=== PATIENT | female | born 1990 | race African-American/Black ===

== ENCOUNTER 2020-08-28 01:41 | Inpatient (IN) ==
[2020-08-28 02:40] LABS: Bacteria,Urine Occasional /HPF (Few); Bilirubin,Urine Negative (Negative); Blood, Urine Negative (Negative); Glucose,Urine (UA) Negative (Negative); Ketones,Urine Negative (Negative); Mucus,Urine Occasional /LPF (Occasional); Nitrite,Urine Negative (Negative); Protein,Urine Negative; Squamous Epithelial Cell,Urine Occasional /HPF (0-10); Urine Appearance CLEAR (Clear); Urine Color Yellow (Yellow); Urine Specific Gravity 1.013 (1.001-1.035)
[2020-08-28] MEDS: LACTATED RINGERS 1,000 ML IV SCH ×2 (03:13→04:24)
[2020-08-28 06:55] LABS: Basophils % 0.1 % (0.0-0.8); Eosinophils # 0.1 10*3/uL (0.0-0.87); Eosinophils % 0.8 % (0.00-10.9); Hematocrit 36.3 VOL% (35.7-47.0); Immature Granulocytes % 0.5 %; Immature Granulocytes Absolute 0.08 #; Lymphocytes # 1.9 10*3/uL (1.4-4.0); Lymphocytes % 11.8 % (21.3-54.2); Mean Corpuscular HGB Conc 33.1 GM/DL (32-36); Mean Corpuscular Volume 82.5 FL (87-102); Mean Platelet Volume 10.2 FL (9.6-12.0); Monocytes % 5.3 % (1.7-12.7); Neutrophils % 81.5 % (38.7-73.9); Platelet Count 214 T/CUMM (130-400); Red Cell Distribution Width 14.2 % (9.3-17.3); White Blood Count 15.9 T/CUMM (4-12)
[2020-08-28] MEDS ORDERED: OXYTOCIN/LR 30 UNIT/1,000 ML BAG IV ONE (07:23)
[2020-08-28] MEDS ORDERED: OXYTOCIN 10 UNIT/ML VIAL IM ONE (07:23)
[2020-08-28 07:33] LABS: Albumin 2.5 G/DL (3.4-5.0); Bilirubin,Total 0.4 MG/DL (0.20-1.00); Calcium 8.4 MG/DL (8.5-10.1); Osmolality,Calculated 271.7 MOS/KG (273-304); Potassium 3.7 MMOL/L (3.5-5.1); Total Protein 6.5 G/DL (6.4-8.2)
[2020-08-28] MEDS ORDERED: ceFAZolin 2,000 MG/50 ML DUPLEX IV ONE (07:34)
[2020-08-28] MEDS ORDERED: CITRIC ACID/SODIUM CITRATE 30 ML UDCUP PO ONE (07:34)
[2020-08-28] MEDS ORDERED: FAMOTIDINE 20 MG/2 ML VIAL IV ONE ×2 (07:34→07:37)
[2020-08-28] MEDS ORDERED: CITRIC ACID/SODIUM CITRATE 30 ML UDCUP ONE (07:37)
[2020-08-28] MEDS ORDERED: OXYTOCIN 10 UNIT/ML VIAL ONE (07:37)
[2020-08-28] MEDS ORDERED: BUPIVACAINE SPINAL 0.75% 2 ML AMP SPINAL ONE (07:47)
[2020-08-28] MEDS ORDERED: LACTATED RINGERS 1,000 ML IV SCH ×2 (08:00→09:30)
[2020-08-28] MEDS ORDERED: DEXAMETHASONE 4 MG/1 ML VIAL ONE (08:30)
[2020-08-28] MEDS ORDERED: ONDANSETRON 4 MG/2 ML VIAL ONE (08:30)
[2020-08-28] MEDS ORDERED: PHENYLEPHRINE 1 MG/10 ML SYRINGE IV ONE (08:31)
[2020-08-28 09:02] LABS: Cord Arterial Blood HCO3 19.9 MMOL/L
[2020-08-28 09:03] LABS: Bacteria,Urine Occasional /HPF (Few); Bilirubin,Urine Negative (Negative); Blood, Urine Negative (Negative); Glucose,Urine (UA) Negative (Negative); Ketones,Urine Negative (Negative); Mucus,Urine Few /LPF (Occasional); Nitrite,Urine Negative (Negative); Protein,Urine Negative; RBC,Urine 6 /HPF (0-4); Squamous Epithelial Cell,Urine Occasional /HPF (0-10); Urine Appearance CLEAR (Clear); Urine Color Yellow (Yellow); Urine Specific Gravity 1.023 (1.001-1.035)
[2020-08-28 09:04] LABS: Cord Venous Blood PCO2 43.4 MMHG; Cord Venous Blood PO2 31.2 MMHG
[2020-08-28] MEDS ORDERED: SIMETHICONE CHEW 80 MG TABLET PO PRN (09:24)
[2020-08-28] MEDS ORDERED: ONDANSETRON 4 MG/2 ML VIAL IV PRN (09:24)
[2020-08-28] MEDS ORDERED: OXYTOCIN/LR 20 UNIT/1,000 ML BAG IV ONE (09:24)
[2020-08-28] MEDS ORDERED: ACETAMINOPHEN 325 MG TABLET PO PRN (09:24)
[2020-08-28] MEDS ORDERED: RHO(D) IMMUNE GLOBULIN 300 MCG SYRINGE IM ONE (09:24)
[2020-08-28] MEDS: ACETAMINOPHEN 500 MG TABLET PO SCH ×3 (12:20→23:37)
[2020-08-28 16:59] LABS: Basophils % 0.1 % (0.0-0.8); Hematocrit 36.7 VOL% (35.7-47.0); Hemoglobin 12.1 GM/DL (12.0-16.0); Immature Granulocytes % 0.6 %; Immature Granulocytes Absolute 0.11 #; Lymphocytes # 0.8 10*3/uL (1.4-4.0); Lymphocytes % 4.1 % (21.3-54.2); Mean Corpuscular Volume 82.1 FL (87-102); Mean Platelet Volume 10.5 FL (9.6-12.0); Monocytes % 3.2 % (1.7-12.7); Platelet Count 217 T/CUMM (130-400); Red Blood Count 4.47 MC/CUMM (3.8-5.5); Red Cell Distribution Width 14.1 % (9.3-17.3); White Blood Count 19.9 T/CUMM (4-12)
[2020-08-28 17:54] LABS: Hypochromasia 2+; Lymphocytes 1 % (20-55); Microcytosis 1+; Platelet Estimate Increased; Polychromasia Slight; Segmented Neutrophils 97 % (50-85); Total Cells Counted 100
[2020-08-28] MEDS: DOCUSATE SODIUM 100 MG CAPSULE PO SCH (20:25)
[2020-08-29] MEDS: ACETAMINOPHEN 500 MG TABLET PO SCH (05:33)
[2020-08-29 06:17] LABS: Basophils % 0.2 % (0.0-0.8); Eosinophils # 0.1 10*3/uL (0.0-0.87); Eosinophils % 0.3 % (0.00-10.9); Hematocrit 35.6 VOL% (35.7-47.0); Hemoglobin 11.5 GM/DL (12.0-16.0); Immature Granulocytes % 0.5 %; Immature Granulocytes Absolute 0.09 #; Lymphocytes # 2.8 10*3/uL (1.4-4.0); Lymphocytes % 15.6 % (21.3-54.2); Mean Corpuscular HGB Conc 32.3 GM/DL (32-36); Mean Corpuscular Volume 83.4 FL (87-102); Mean Platelet Volume 10.7 FL (9.6-12.0); Monocytes % 6.5 % (1.7-12.7); Neutrophils % 76.9 % (38.7-73.9); Platelet Count 224 T/CUMM (130-400); Red Blood Count 4.27 MC/CUMM (3.8-5.5); Red Cell Distribution Width 14.2 % (9.3-17.3)
[2020-08-29] MEDS: MAGNESIUM HYDROXIDE SUSP 30 ML UDCUP PO PRN ×2 (09:24→20:55)
[2020-08-29] MEDS: DOCUSATE SODIUM 100 MG CAPSULE PO SCH ×2 (09:24→20:55)
[2020-08-29] MEDS: MULTIVITAMIN (PRENATAL) TABLET PO SCH (09:24)
[2020-08-29] MEDS: METOCLOPRAMIDE 10 MG TABLET PO SCH ×2 (09:24→15:47)
[2020-08-29] MEDS: IBUPROFEN 800 MG TABLET PO PRN ×2 (12:34→20:55)
[2020-08-30] MEDS: METOCLOPRAMIDE 10 MG TABLET PO SCH ×2 (00:45→08:33)
[2020-08-30] MEDS: IBUPROFEN 800 MG TABLET PO PRN (08:33)
[2020-08-30] MEDS: MULTIVITAMIN (PRENATAL) TABLET PO SCH (08:33)
[2020-08-30] MEDS: DOCUSATE SODIUM 100 MG CAPSULE PO SCH (08:33)
[2020-08-30 11:43] VITALS: BP 118/68
== END 2020-08-30 13:35 | disposition home or self-care (01) | DRG 540 ==
LOC: N.LDOUT 01:41 → N.LD 01:43 → N.OB 12:26
PROVIDERS: ADMIT Obstetrics & Gynecology; ATTEND Obstetrics & Gynecology
PROC: LDCSECT (ICD-10-PCS; 2020-08-28 07:30)

== ENCOUNTER 2022-03-03 05:42 | Inpatient (IN) ==
[2022-03-03] MEDS ORDERED: OXYTOCIN/LR 20 UNIT/1,000 ML BAG IV ONE ×2 (05:48→10:20)
[2022-03-03] MEDS ORDERED: METHYLERGONOVINE 0.2 MG/1 ML AMP IM PRN (05:48)
[2022-03-03] MEDS ORDERED: TRANEXAMIC ACID 1,000 MG in SODIUM CHLORIDE 0.9% 100 ML IV PRN (05:48)
[2022-03-03] MEDS ORDERED: miSOPROStoL 200 MCG TABLET RECTAL PRN (05:48)
[2022-03-03] MEDS ORDERED: CITRIC ACID/SODIUM CITRATE 30 ML UDCUP PO ONE (05:48)
[2022-03-03] MEDS ORDERED: ceFAZolin 2,000 MG/50 ML DUPLEX IV ONE (05:48)
[2022-03-03] MEDS ORDERED: CARBOPROST TROMETHAMINE 250 MCG/ML AMP IM PRN (05:48)
[2022-03-03] MEDS ORDERED: FAMOTIDINE 20 MG/2 ML VIAL IV ONE (05:48)
[2022-03-03] MEDS ORDERED: OXYTOCIN/LR 30 UNIT/1,000 ML BAG IV ONE (05:50)
[2022-03-03] MEDS ORDERED: OXYTOCIN 10 UNIT/ML VIAL IM ONE (05:50)
[2022-03-03] MEDS ORDERED: LACTATED RINGERS 1,000 ML IV SCH (06:00)
[2022-03-03 06:14] LABS: Basophils % 0.3 % (0.0-0.8); Eosinophils # 0.1 10*3/uL (0.0-0.87); Eosinophils % 0.9 % (0.00-10.9); Hematocrit 33.7 VOL% (35.7-47.0); Hemoglobin 11.2 GM/DL (12.0-16.0); Immature Granulocytes % 0.5 %; Immature Granulocytes Absolute 0.05 #; Lymphocytes # 2.3 10*3/uL (1.4-4.0); Lymphocytes % 23.9 % (21.3-54.2); Mean Corpuscular HGB Conc 33.2 GM/DL (32-36); Mean Corpuscular Volume 80.2 FL (87-102); Mean Platelet Volume 9.5 FL (9.6-12.0); Monocytes # 0.7 10*3/uL (0.11-0.8); Monocytes % 6.8 % (1.7-12.7); Neutrophils % 67.6 % (38.7-73.9); Platelet Count 241 T/CUMM (130-400); Red Cell Distribution Width 14.1 % (9.3-17.3); White Blood Count 9.8 T/CUMM (4-12)
[2022-03-03 06:42] LABS: Albumin 2.8 G/DL (3.4-5.0); Bilirubin,Total 0.5 MG/DL (0.20-1.00); Calcium 8.8 MG/DL (8.5-10.1); Osmolality,Calculated 268.1 MOS/KG (273-304); Potassium 3.9 MMOL/L (3.5-5.1); Total Protein 7.2 G/DL (6.4-8.2)
[2022-03-03] MEDS ORDERED: buprenorphine HCL 0.3 MG/ML VIAL ONE (06:46)
[2022-03-03] MEDS ORDERED: PHENYLEPHRINE 1 MG/10 ML SYRINGE IV ONE ×3 (06:50→10:06)
[2022-03-03] MEDS ORDERED: ONDANSETRON 4 MG/2 ML VIAL ONE (06:50)
[2022-03-03] MEDS ORDERED: KETOROLAC 30 MG/1 ML VIAL ONE (06:51)
[2022-03-03 10:04] LABS: Cord Arterial Blood HCO3 20.4 MMOL/L
[2022-03-03 10:07] LABS: Cord Venous Blood HCO3 21.8 MMOL/L; Cord Venous Blood PCO2 50.7 MMHG; Cord Venous Blood PO2 30.1
[2022-03-03] MEDS ORDERED: LACTATED RINGERS 1,000 ML IV ONE (10:07)
[2022-03-03] MEDS ORDERED: ACETAMINOPHEN INJ 1,000 MG/100 ML VIAL IV ONE (10:07)
[2022-03-03] MEDS ORDERED: ACETAMINOPHEN 325 MG TABLET PO PRN (10:20)
[2022-03-03] MEDS ORDERED: SIMETHICONE CHEW 80 MG TABLET PO PRN (10:20)
[2022-03-03] MEDS ORDERED: ONDANSETRON 4 MG/2 ML VIAL IV PRN (10:20)
[2022-03-03] MEDS ORDERED: RHO(D) IMMUNE GLOBULIN 300 MCG SYRINGE IM ONE (10:20)
[2022-03-03] MEDS ORDERED: diphenhydrAMINE 50 MG/1 ML VIAL IV PRN (10:36)
[2022-03-03] MEDS ORDERED: hydrOXYzine HCL 25 MG/1 ML VIAL IM PRN (10:36)
[2022-03-03] MEDS ORDERED: HYDROmorphone 1 MG/1 ML SYRINGE IV PRN (10:36)
[2022-03-03 13:16] LABS: Mucus,Urine Occasional /LPF (Occasional); RBC,Urine 4 /HPF (0-4); Squamous Epithelial Cell,Urine Occasional /HPF (0-10)
[2022-03-03 13:17] LABS: Bilirubin,Urine Small mg/dL (Negative); Blood, Urine Negative (Negative); Glucose,Urine (UA) Negative (Negative); Ketones,Urine Trace mg/dL (Negative); Nitrite,Urine Negative (Negative); Protein,Urine 100 mg/dL (Negative); Urine Appearance Clear (Clear); Urine Color Yellow (Yellow); Urine Specific Gravity 1.025 (1.001-1.035); Urine pH 6.5 (4.5-8.0)
[2022-03-03] MEDS: KETOROLAC 30 MG/1 ML VIAL IV SCH ×2 (16:53→22:10)
[2022-03-03] MEDS: ACETAMINOPHEN 500 MG TABLET PO SCH ×2 (16:53→22:10)
[2022-03-03] MEDS: LACTATED RINGERS 1,000 ML IV SCH (18:30)
[2022-03-03 18:46] LABS: Basophils % 0.2 % (0.0-0.8); Hematocrit 32.7 VOL% (35.7-47.0); Hemoglobin 10.7 GM/DL (12.0-16.0); Immature Granulocytes % 0.4 %; Immature Granulocytes Absolute 0.07 #; Lymphocytes # 1.4 10*3/uL (1.4-4.0); Lymphocytes % 8.4 % (21.3-54.2); Mean Corpuscular HGB Conc 32.7 GM/DL (32-36); Mean Corpuscular Volume 80.7 FL (87-102); Mean Platelet Volume 9.9 FL (9.6-12.0); Monocytes # 0.9 10*3/uL (0.11-0.8); Monocytes % 5.4 % (1.7-12.7); Neutrophils % 85.6 % (38.7-73.9); Platelet Count 235 T/CUMM (130-400); Red Blood Count 4.05 MC/CUMM (3.8-5.5); Red Cell Distribution Width 13.9 % (9.3-17.3)
[2022-03-03] MEDS: DOCUSATE SODIUM 100 MG CAPSULE PO SCH (20:59)
[2022-03-04] MEDS: ACETAMINOPHEN 500 MG TABLET PO SCH (04:10)
[2022-03-04] MEDS: KETOROLAC 30 MG/1 ML VIAL IV SCH (04:10)
[2022-03-04] MEDS: LACTATED RINGERS 1,000 ML IV SCH (04:34)
[2022-03-04 06:13] LABS: Basophils % 0.3 % (0.0-0.8); Eosinophils # 0.1 10*3/uL (0.0-0.87); Eosinophils % 0.4 % (0.00-10.9); Hematocrit 30.7 VOL% (35.7-47.0); Hemoglobin 9.8 GM/DL (12.0-16.0); Immature Granulocytes % 0.3 %; Immature Granulocytes Absolute 0.04 #; Lymphocytes # 2.4 10*3/uL (1.4-4.0); Lymphocytes % 19.7 % (21.3-54.2); Mean Corpuscular HGB Conc 31.9 GM/DL (32-36); Mean Corpuscular Volume 81.9 FL (87-102); Mean Platelet Volume 10.2 FL (9.6-12.0); Monocytes # 0.8 10*3/uL (0.11-0.8); Monocytes % 6.4 % (1.7-12.7); Neutrophils % 72.9 % (38.7-73.9); Platelet Count 219 T/CUMM (130-400); Red Blood Count 3.75 MC/CUMM (3.8-5.5); Red Cell Distribution Width 14.2 % (9.3-17.3)
[2022-03-04] MEDS: MAGNESIUM HYDROXIDE SUSP 30 ML UDCUP PO PRN (09:15)
[2022-03-04] MEDS: MULTIVITAMIN (PRENATAL) TABLET PO SCH (09:15)
[2022-03-04] MEDS: IBUPROFEN 800 MG TABLET PO PRN ×2 (09:15→19:53)
[2022-03-04] MEDS: METOCLOPRAMIDE 10 MG TABLET PO SCH ×2 (09:15→16:32)
[2022-03-04] MEDS: DOCUSATE SODIUM 100 MG CAPSULE PO SCH ×2 (09:15→21:28)
[2022-03-05] MEDS: METOCLOPRAMIDE 10 MG TABLET PO SCH ×2 (06:05→08:31)
[2022-03-05] MEDS: MULTIVITAMIN (PRENATAL) TABLET PO SCH (08:31)
[2022-03-05] MEDS: DOCUSATE SODIUM 100 MG CAPSULE PO SCH (08:31)
[2022-03-05] MEDS: MAGNESIUM HYDROXIDE SUSP 30 ML UDCUP PO PRN (08:31)
[2022-03-05 12:05] VITALS: BP 125/75
== END 2022-03-05 13:40 | disposition home or self-care (01) | DRG 540 ==
LOC: N.LD 05:42 → N.OB 12:49
PROVIDERS: ADMIT Obstetrics & Gynecology; ATTEND Obstetrics & Gynecology
PROC: LDCSECT (ICD-10-PCS; 2022-03-03 09:00)